=== PATIENT | female | born 1960 | race Caucasian/White ===

== ENCOUNTER → 2021-04-09 13:22 | Outpatient (CLI) | payer MEDICARE, SELFPAY ==
--- NOTE | ~2021-04-09 | XR_ITS ---
XR knee LT min 4V DATE: 04/09/2021 13:54 INDICATION: Left knee pain TECHNIQUE: [place], standing AP, PA and lateral views COMPARISON: 12/25/2010 FINDINGS: There is diffuse osteopenia. There is prominent tri-compartment osteoarthritis, especially severe at the medial compartment. There is varus deformity. There is approximately 2.5 x 2.5 cm heterotopic calcification/ossification in the suprapatellar area. No radiopaque intra-articular loose body or chondrocalcinosis. No fracture or dislocation, periosteal reaction or bone destruction. IMPRESSION: Tricompartment osteoarthritis, especially severe at the medial compartment Diffuse osteopenia Reviewed, dictated and finalized at location A. IMPRESSION: Tricompartment osteoarthritis, especially severe at the medial comp artment Diffuse osteopenia
--- NOTE | ~2021-04-09 | XR_ITS ---
XR knee RT min 4V DATE: 04/09/2021 13:54 INDICATION: Right knee pain TECHNIQUE: [place], standing AP, PA and lateral views COMPARISON: 12/25/2010 right knee FINDINGS: There is severe tricompartment osteoarthritis, particularly pronounced at the medial compar tment with obliteration of the joint space, patchy sclerosis and prominent periarticular spurring. There is very prominent periarticular spurring at the patellofemoral and to a lesser extent lateral c ompartments. There is varus deformity. Diffuse osteopenia. No fracture, dislocation, periosteal reaction or bone destruction IMPRESSION: Severe tricompartment osteoarthritis, particularly pronounced at the medial compartment Diffuse osteopenia Reviewed, dictated and finalized at location A. IMPRESSION: Severe tricompartment osteoarthritis, particularly pronounced at th e medial compartment Diffuse osteopenia
== END ==
PROVIDERS: PCP Family Medicine; Visit Provider Family Medicine
DX: M17.0 Bilateral primary osteoarthritis of knee (principal); M85.861 Other specified disorders of bone density and structure, right lower leg; M85.862 Other specified disorders of bone density and structure, left lower leg
CPT/HCPCS: 73564

== ENCOUNTER → 2021-09-07 00:46 | Outpatient (CLI) | payer MEDICARE, SELFPAY ==
[2021-09-08 10:57] LABS: SARS-CoV-2 RNA PCR Negative
== END ==
PROVIDERS: Physician Assistant; PCP Family Medicine; Visit Provider Family Medicine
DX: R68.89 Other general symptoms and signs (principal); Z20.822 Contact with and (suspected) exposure to COVID-19
CPT/HCPCS: C9803; U0003; U0005

== ENCOUNTER → 2021-09-16 11:43 | Outpatient (CLI) | payer MEDICARE, SELFPAY ==
--- NOTE | ~2021-09-16 | MM_ITS ---
EXAMINATION: MM screening [facility] BI w anthony HISTORY: Screening mammogram TECHNIQUE: Craniocaudal and mediolateral oblique 3-D tomosynthesis images were obtained and synthetic 2-D images were generated. CAD analysis was submitted and interpreted. COMPARISON: 07/17/2018, 07/03/2014, 12/19/2012 BREAST PARENCHYMAL COMPOSITION: There are scattered areas of fibroglandular density. FINDINGS: There is no evidence of suspicious mass, calcification, or architectural distortion to sugg est malignancy in either breast. There has been no suspicious interval change. IMPRESSION: 1. No mammographic evidence of malignancy. 2. Recommend routine screening mammography in one year. BI-RADS Category 1: Negative Reviewed, dictated and finalized at location A. RACTS MANAGER
--- NOTE | ~2021-09-16 | DEXA_ITS ---
Bone Density Report Name: PAUL BACK Age: 61 Sex: Female Ethnicity: White Date of : 1960 Indication: postmenopausal; screening for osteoporosis; height loss; asthma or emphysema; Referring Provider: DERRICK SHAH Study: Bone densitometry was performed. Exam Date: September 16, 2021 Accession number: [id number] Bone Density: Region BMD T-score Z-score Classification AP Spine (L1-L4) 1.122 0.7 2.3 Normal Femoral Neck (Left) 0.834 -0.1 1.3 Normal Total Hip (Left) 0.926 -0.1 1.0 Normal Femoral Neck (Right) 0.811 -0.3 1.1 Normal Total Hip (Right) 1.016 0.6 1.7 Normal Total Hip Mean 0.971 0.3 1.4 Normal World Health Organization criteria for BMD impression classify patients as: Normal (T-score at or above -1.0), Osteopenia (T-score between -1.0 and -2.5), or Osteoporosis (T-score at or below -2.5). 10-year Fracture Risk: FRAX not reported because: All T-scores for Spine Total, Hip Total, Femoral Neck at or above -1.0 Previous Exams: Region Exam Age BMD T-score BMD Change BMD Change Date g/cm2 vs Baseline vs Previous AP Spine(L1-L4) 09/16/2021 61 1.122 0.7 0.012 0.012 12/19/2012 52 1.110 0.6 Total Hip(Left) 09/16/2021 61 0.926 -0.1 -0.139* -0.139* 12/19/2012 52 1.065 1.0 Total Hip(Right) 09/16/2021 61 1.016 0.6 -0.032* -0.032* 12/19/2012 52 1.048 0.9 *Denotes significance at 95% confidence level, LSC for AP Spine = 0.022 g/cm2, LSC for Total Hip = 0.027 g/cm2 Clinical Information Provided by Patient: Has used the following medications: Vitamin D Has the following medical conditions: Asthma or Emphysema Patient maximum height was 63.0 Menopause Age: 48 No regular weight bearing exercise Does not regularly consume dairy products Drinks caffeinated beverages Onset of menses at age 14 Number of children 2 Impression: The patient has normal bone mass. The BMD for the Total Hip(Left) decreased, changing by -0.139 since the last DXA exam. The BMD for the Total Hip(Right) decreased, changing by -0.032 since the last DXA exam. Discussion: BONE DENSITY IS ABOVE THE MINIMUM DESIRABLE LEVEL AT ALL SKELETAL SITES TESTED. This patient?s bone mineral density is above the minimum desirable level (T-score -1.0 or better) at all sites measured. The patient should follow a healthful lifestyle (good nutrition with adequate calcium and vitamin D, and appropriate weight-bearing
== END ==
PROVIDERS: PCP Family Medicine; Visit Provider Family Medicine
DX: Z12.31 Encounter for screening mammogram for malignant neoplasm of breast (principal); Z78.0 Asymptomatic menopausal state
CPT/HCPCS: 77063; 77067; 77080